=== PATIENT | female | born 1990 | race Caucasian/White ===

== ENCOUNTER 2017-11-19 17:33 | Emergency (ER) | payer MEDICAID, OTHER ==
[~2017-11-19] VITALS: Ht 160 cm; Wt 102.1 kg
--- OUTSIDE RECORDS SUMMARY | 2017-11-19 17:42 | XMS REPORT ---
Author Author Renee Markham [facility] Address [address] [place], [place] [id number] Care Team Providers Care Media Assistant Name Role Phone Renee Markham PCP Unavailable Allergies and Adverse Reactions Name Reaction Notes NO KNOWN DRUG ALLERGIES Plan of Treatment Planned Activity Comments Planned Date Planned Time Plan/Goal CULTURE OTHR SPECIMN AEROBIC 02/17/2015 12:00 AM Medications Active Name Start Date Estimated Completion Date SIG Comments Vinate Ultra 90-1-50 mg oral tablet 09/19/2014 take 1 tablet by oral route once daily Claritin 10 mg oral tablet 09/24/2014 take 1 tablet (10 mg) by oral route once daily Diclegis 10-10 mg oral tablet,delayed release (DR/EC) take 1 tablet by oral route once daily in the morning, 1 tablet in the mid-afternoon, and 2 tablets at bedtime Name Start Date Expiration Date SIG Comments Tylenol-Codeine #3 300-30 mg oral tablet 10/10/2012 take 1 tablet by oral route every 8 hours as needed Percocet 5-325 mg oral tablet 10/12/2012 take 1 tablet by oral route every 6 hours as needed Imodium A-D 2 mg oral tablet 04/29/2013 05/02/2013 take 2 tablets (4 mg) by oral route after 1st loose stool and 1 tablet (2 mg) after each next bowel movement; do not exceed 16 mg in 24hrs f ranitidine HCl 150 mg oral capsule 04/29/2013 09/26/2013 take 1 capsule (150 mg ) by oral route 2 times per day for 30 days Discontinued Name Start Date Discontinued Date SIG Comments TriAdvance 90-1-50 mg oral tablet 12/30/2011 09/28/2012 take 1 tablet by oral route once daily for 30 days ibuprofen 800 mg oral tablet 01/11/2012 01/19/2012 take 1 tablet (800 mg) by oral route 3 times per day with food prn pain Percocet 5-325 mg oral tablet 01/11/2012 01/19/2012 take 1 tablet by oral route every 6 hours as needed Sprintec (28) 0.25-35 mg-mcg oral tablet 01/19/2012 09/28/2012 take 1 tablet by oral route once daily for 28 days loratadine 10 mg oral tablet 03/18/2014 take 1 tablet (10 mg) by oral route once daily PreQue 10 15 mg iron -0.5 mg-25 mg oral tablet 03/14/2013 11/12/2013 1 PO qdaily Zofran ODT 4 mg oral tablet,disintegrating 04/29/2013 11/12/2013 1 PO q 8 hrs prn nausea Percocet 5-325 mg oral tablet 11/12/2013 take 1 - 2 tablets by oral route every 4-6 hours as needed Prilosec oral 08/01/2014 paroxetine HCl 20 mg oral tablet 08/01/2014 PNV- OTC 08/01/2014 09/19/2014 1 PO qdaily Problem List Description Status Onset Rheumatoid arthritis Active , Threatened Active 10/12/2012 Vital Signs Date Time BP-Sys(mm[Hg] BP-Germaine(mm[Hg]) HR(bpm) RR(rpm) Temp WT HT HC BMI BSA BMI Percentile O2 Sat(%) 08/01/2014 3:22:00 PM 139 mmHg 71 mmHg 96 bpm 96.9 F 206 lbs 62 in 37.68 kg/m2 2.02 m2 03/18/2014 3:36:00 PM 119 mmHg 74 mmHg 88 bpm 97.8 F 205 lbs 62 in 37.4946 kg/m 2.0168 m 11/12/2013 8:36:00 AM 125 mmHg 77 mmHg 87 bpm 98.3 F 206 lbs 62 in 37.68 kg/m2 2.02 m2 07/03/2013 2:25:00 PM 102 mmHg 69 mmHg 67 bpm 16 rpm 97.9 F 198 lbs 62 in 36.2143 kg/m 1.9821 m 10/05/2012 10:31:00 AM 101 mmHg 63 mmHg 74 bpm 97.9 F 201 lbs 62 in 36.76 kg/m2 2.00 m2 09/28/2012 1:42:00 PM 133 mmHg 68 mmHg 94 bpm 97.7 F 204 lbs 62 in 37.3117 kg/m 2.0119 m 01/19/2012 9:26:00 AM 131 mmHg 72 mmHg 74 bpm 206 lbs 62 in 37.68 kg/m2 2.02 m2 12/16/2011 11:15:00 AM 124 mmHg 86 mmHg 60 bpm 206 lbs 62 in 37.6775 kg/m 2.0218 m Social History Name Description Comments Alcohol Never Health care Res care Single Tobacco Former smoker History of Procedures Date Ordered Description Order Status 12/16/2011 12:00 AM CYTOPATH C/V THIN LAYER Returned 12/16/2011 12:00 AM SPECIMEN HANDLING OFFICE-LAB Reviewed 12/16/2011 12:00 AM N.GONORRHOEAE DNA AMP PROB Returned 12/16/2011 12:00 AM CHLAMYDIA CULTURE Returned 12/16/2011 12:00 AM OBSTETRIC PANEL Returned 12/16/2011 12:00 AM HIV-1ANTIBODY Returned 12/16/2011 12:00 AM URINALYSIS AUTO W/SCOPE Returned 12/16/2011 12:00 AM OB US < 14 WKS SINGLE FETUS Reviewed 12/16/2011 12:00 AM GLYCOSYLATED HEMOGLOBIN TEST Returned 01/11/2012 12:00 AM COMPLETE CBC W/AUTO DIFF WBC Returned 01/11/2012 12:00 AM Type and screen Returned 09/28/2012 12:00 AM URINE TEST Reviewed 09/28/2012 12:00 AM CYTOPATH C/V THIN LAYER Returned 09/28/2012 12:00 AM SPECIMEN HANDLING OFFICE-LAB Reviewed 09/28/2012 12:00 AM N.GONORRHOEAE DNA AMP PROB Returned 09/28/2012 12:00 AM CHLAMYDIA CULTURE Returned 09/28/2012 12:00 AM OBSTETRIC PANEL Returned 09/28/2012 12:00 AM HIV-1ANTIBODY Returned 09/28/2012 12:00 AM URINALYSIS AUTO W/SCOPE Returned 09/28/2012 12:00 AM OB US < 14 WKS SINGLE FETUS Returned 09/28/2012 12:00 AM GLYCOSYLATED HEMOGLOBIN TEST Returned 09/28/2012 12:00 AM SMEAR WET MOUNT SALINE/INK Reviewed 10/12/2012 12:00 AM TRANSVAGINAL US OBSTETRIC Reviewed 10/23/2012 12:00 AM TRANSVAGINAL US OBSTETRIC Reviewed 12/06/2012 12:00 AM ALPHA-FETOPROTEIN SERUM Returned 01/03/2013 12:00 AM OB US >/=14 WKS SNGL FETUS Returned 02/28/2013 12:00 AM GLUCOSE TEST Returned 02/28/2013 12:00 AM COMPLETE CBC W/AUTO DIFF WBC Returned 02/28/2013 12:00 AM Type and screen Returned 02/28/2013 12:00 AM GLUCOSE TOLERANCE TEST (GTT) Returned 04/02/2013 12:00 AM OB US >/=14 WKS SNGL FETUS Reviewed 04/24/2013 12:00 AM OB US >/=14 WKS SNGL FETUS Returned 11/12/2013 12:00 AM CYTOPATH C/V MANUAL Reviewed 11/12/2013 12:00 AM SPECIMEN HANDLING OFFICE-LAB Reviewed 11/12/2013 12:00 AM CHLAMYDIA CULTURE Returned 11/12/2013 12:00 AM N.GONORRHOEAE DNA AMP PROB Returned 11/12/2013 12:00 AM ASSAY THYROID STIM HORMONE Returned 11/12/2013 12:00 AM URINALYSIS AUTO W/SCOPE Returned 11/12/2013 12:00 AM ASSAY OF GONADOTROPIN (FSH) Returned 11/12/2013 12:00 AM ASSAY OF PROLACTIN Returned 11/12/2013 12:00 AM ASSAY OF FREE TESTOSTERONE Returned 11/12/2013 12:00 AM ASSAY OF SEX HORMONE GLOBUL Returned 03/26/2014 12:00 AM Breast ultrasound Returned 03/18/2014 12:00 AM Breast ultrasound Reviewed 08/01/2014 3:31 PM URINE TEST Reviewed 08/01/2014 12:00 AM N.GONORRHOEAE DNA AMP PROB Returned 08/01/2014 12:00 AM CHLAMYDIA CULTURE Returned 08/01/2014 12:00 AM HIV-1ANTIBODY Returned 08/01/2014 12:00 AM CYTOPATH C/V THIN LAYER Returned 08/01/2014 12:00 AM URINALYSIS AUTO W/SCOPE Returned 08/01/2014 12:00 AM OBSTETRIC PANEL Returned 08/01/2014 12:00 AM US PREG UTERUS REAL TIME W/IMAGE DCMTN TRANSVAG Returned 08/01/2014 12:00 AM SPECIMEN HANDLING OFFICE-LAB Reviewed 10/03/2014 12:00 AM ALPHA-FETOPROTEIN SERUM Returned 10/31/2014 12:00 AM OB US >/=14 WKS SNGL FETUS Returned 12/25/2014 12:00 AM GLUCOSE TEST Returned 12/25/2014 12:00 AM COMPLETE CBC W/AUTO DIFF WBC Returned 12/25/2014 12:00 AM Type and screen Returned 02/07/2015 12:00 AM OB US FOLLOW-UP PER FETUS Returned Results Summary Data and Description Results 12/16/2011 12:50 PM WBC 9.2 RBC 4.78 HGB 14.80 g/dLHCT 42.30 %MCV 89.0 fLMCH 31.0 pgMCHC 35.0 g/dLRDW CV 12.90 %MPV 10.70 fLPLT 257 %NEUT 68.70 %%LYMP 24.70 %%MONO 5.10 %%EOS 1.30 %%BASO 0.20 %#NEUT 6.28 #LYMP 2.26 #MONO 0.47 #EOS 0.12 # BASO 0.02 COLOR YELLOW APPEARANCE CLEAR SPEC GRAV 1.020 pH 7.0 PROTEIN NEGATIVE GLUCOSE NEGATIVE KETONE NEGATIVE BILIRUBIN NEGATIVE BLOOD NEGATIVE NITRITE NEGATIVE LEUK SCREEN NEGATIVE CASTS/LPF NEGATIVE CRYSTALS TRACE CA OX MUCOUS THRDS FEW BACTERIA FEW EPITH CELLS FEW SQUAMOUS TRICHOMONAS NEGATIVE YEAST NEGATIVE HIV AG/AB COMBO 0.09 GLYCOHEMOGLOBIN A1C 5.0 %ABO/Rh Type A Positive RUBELLA 15.0 IU/mL 01/11/2012 10:40 AM WBC 9.0 RBC 4.82 HGB 14.80 g/dLHCT 42.60 %MCV 88.0 fLMCH 30.70 pgMCHC 34.70 g/dLRDW CV 12.70 %MPV 10.60 fLPLT 287 ABO/Rh Type A Positive 10/02/2012 5:20 PM COLOR YELLOW APPEARANCE CLEAR SPEC GRAV 1.025 pH 6.0 PROTEIN NEGATIVE GLUCOSE NEGATIVE KETONE NEGATIVE BILIRUBIN NEGATIVE BLOOD NEGATIVE NITRITE NEGATIVE LEUK SCREEN NEGATIVE CASTS/LPF NEGATIVE CRYSTALS NEGATIVE MUCOUS THRDS NEGATIVE BACTERIA NEGATIVE EPITH CELLS NEGATIVE TRICHOMONAS NEGATIVE YEAST NEGATIVE WBC 11.9 RBC 4.60 HGB 13.70 g/dLHCT 40.0 % MCV 87.0 fLMCH 29.80 pgMCHC 34.30 g/dLRDW CV 12.80 %MPV 10.50 fLPLT 250 %NEUT 73.80 %%LYMP 20.20 %%MONO 4.50 %%EOS 1.30 %%BASO 0.20 %#NEUT 8.79 #LYMP 2.40 # MONO 0.53 #EOS 0.15 #BASO 0.02 ABO/Rh Type A Positive GLYCOHEMOGLOBIN A1C 5.60 % HIV AG/AB COMBO 0.25 02/28/2013 9:55 AM WBC 8.1 RBC 4.02 HGB 11.70 g/dLHCT 34.30 %MCV 85.0 fLMCH 29.10 pgMCHC 34.10 g/dLRDW CV 13.50 %MPV 9.70 fLPLT 284 %NEUT 73.80 %%LYMP 20.30 %%MONO 4.0 %%EOS 1.70 %%BASO 0.20 %#NEUT 5.96 #LYMP 1.64 #MONO 0.32 #EOS 0.14 #BASO 0.02 ABO/Rh Type A Positive 04/29/2013 8:50 AM WBC 12.5 PLT 271 %NEUT 89.80 %%LYMP 6.10 %%MONO 3.70 %%EOS 0.30 %%BASO 0.10 %#NEUT 11.24 #LYMP 0.76 #MONO 0.46 #EOS 0.04 #BASO 0.01 EOS 1.0 %RBC 4.19 HGB 11.20 g/dLHCT 34.20 %MCV 82.0 fLMCH 26.70 pgMCHC 32.70 g/ dLRDW CV 13.90 %MPV 10.0 fLCOLOR YELLOW APPEARANCE CLEAR SPEC GRAV 1.025 pH 5.5 PROTEIN TRACE GLUCOSE NEGATIVE KETONE NEGATIVE BILIRUBIN NEGATIVE BLOOD NEGATIVE NITRITE NEGATIVE LEUK SCREEN NEGATIVE CASTS/LPF NEGATIVE CRYSTALS TRACE AMORPH MUCOUS THRDS FEW BACTERIA FEW EPITH CELLS 1+ SQUAMOUS TRICHOMONAS NEGATIVE YEAST NEGATIVE GLUCOSE 92.0 mg/dLSODIUM 138.0 mmol/LPOTASSIUM 3.80 mmol /LCHLORIDE 107.0 mmol/LCO2 20.0 mmol/LBUN 9.0 mg/dLCREATININE 0.60 mg/dLSGOT/ AST 13.0 IU/LSGPT/ALT 13.0 IU/LALK PHOS 122.0 IU/LTOTAL PROTEIN 6.60 g/ dLALBUMIN 3.0 g/dLTOTAL BILI 0.40 mg/dLCALCIUM 9.20 mg/dLeGFR >60 mL/min/1.73 m2 05/02/2013 10:15 PM WBC 7.3 RBC 4.08 HGB 10.80 g/dLHCT 33.20 %MCV 81.0 fLMCH 26.50 pgMCHC 32.50 g/dLRDW CV 13.90 %MPV 10.30 fLPLT 249 %NEUT 75.50 %%LYMP 18.70 %%MONO 5.0 %%EOS 0.70 %%BASO 0.10 %#NEUT 5.54 #LYMP 1.37 #MONO 0.37 #EOS 0.05 #BASO 0.01 ABO/Rh Type A Positive 05/04/2013 7:20 AM WBC 12.2 RBC 3.89 HGB 10.30 g/dLHCT 31.80 %MCV 82.0 fLMCH 26.50 pgMCHC 32.40 g/dLRDW CV 14.0 %MPV 9.80 fLPLT 220 07/13/2013 8:40 AM TEST UR NEGATIVE 11/12/2013 1:19 PM COLOR YELLOW APPEARANCE CLEAR SPEC GRAV >=1.030 pH 5.5 PROTEIN NEGATIVE GLUCOSE NEGATIVE KETONE NEGATIVE BILIRUBIN NEGATIVE BLOOD NEGATIVE NITRITE NEGATIVE LEUK SCREEN NEGATIVE CASTS/LPF NEGATIVE CRYSTALS TRACE AMORPH MUCOUS THRDS NEGATIVE BACTERIA FEW EPITH CELLS FEW SQUAMOUS TRICHOMONAS NEGATIVE YEAST NEGATIVE 11/16/2013 8:45 AM FSH 0.90 mIU/mLFree Testosterone(Direct) 0.60 pg/mLTSH 0.40 uIU/mLProlactin 17.90 ng/mLChlamydia trachomatis,LUPIS Negative Neisseria gonorrhoeae,LUPIS Negative COLOR YELLOW APPEARANCE CLEAR SPEC GRAV >=1.030 pH 5.5 PROTEIN NEGATIVE GLUCOSE NEGATIVE KETONE NEGATIVE BILIRUBIN NEGATIVE BLOOD NEGATIVE NITRITE NEGATIVE LEUK SCREEN NEGATIVE CASTS/LPF NEGATIVE CRYSTALS NEGATIVE MUCOUS THRDS FEW BACTERIA NEGATIVE EPITH CELLS FEW SQUAMOUS TRICHOMONAS NEGATIVE YEAST NEGATIVE 08/01/2014 3:31 PM HCG Ur Ql positive 08/01/2014 4:30 PM WBC 11.1 RBC 4.73 HGB 13.90 g/dLHCT 41.60 %MCV 88.0 fLMCH 29.40 pgMCHC 33.40 g/dLRDW CV 12.90 %MPV 10.30 fLPLT 268 %NEUT 76.30 %%LYMP 18.80 %%MONO 3.70 %%EOS 1.10 %%BASO 0.10 %#NEUT 8.46 #LYMP 2.09 #MONO 0.41 #EOS 0.12 #BASO 0.01 COLOR YELLOW APPEARANCE CLOUDY SPEC GRAV 1.020 pH 7.5 PROTEIN NEGATIVE GLUCOSE NEGATIVE KETONE NEGATIVE BILIRUBIN NEGATIVE BLOOD NEGATIVE NITRITE NEGATIVE LEUK SCREEN NEGATIVE CASTS/LPF NEGATIVE CRYSTALS 3+++AMORPHOUS MUCOUS THRDS NEGATIVE BACTERIA NEGATIVE EPITH CELLS FEW SQUAMOUS TRICHOMONAS NEGATIVE YEAST NEGATIVE RPR Non Reactive HIV AG/AB COMBO 0.08 HBsAg Screen Negative Rubella Antibodies, IgG 1.08 Index 10/03/2014 3:45 PM AFP Value 0.0352 ug/mLAFP MoM 1.20 hCG Value 18888.0 mIU/ mLhCG MoM 0.96 uE3 Value 1.150 ng/mLuE3 MoM 1.44 GERMAINE Value 209.620 pg/mLDIA MoM 1.30 OSBR Risk 1 IN 6499 DSR (Second Trimester) 1IN 6292 DSR (By Age) 1 IN 924 T18 Risk Not increased T18 (By Age) 1:3600 12/25/2014 2:50 PM WBC 8.9 RBC 4.11 HGB 12.10 g/dLHCT 36.60 %MCV 89.0 fLMCH 29.40 pgMCHC 33.10 g/dLRDW CV 13.30 %MPV 9.90 fLPLT 274 %NEUT 78.50 %%LYMP 16.90 %%MONO 3.60 %%EOS 0.90 %%BASO 0.10 %#NEUT 7.00 #LYMP 1.51 #MONO 0.32 #EOS 0.08 #BASO 0.01 History Of Immunizations Not available. History of Past Illness Name Date of Onset Comments Rheumatoid arthritis Diagnosed age 19 , Threatened 10/12/2012 test confirmed positive Dec 16 2011 11:25AM Obesity complicating Dec 16 2011 11:25AM , Spontaneous Jan 11 2012 10:26AM , Spontaneous Jan 19 2012 9:30AM Postoperative Visit Jan 19 2012 9:30AM test confirmed positive Sep 28 2012 1:51PM Vaginal Discharge Sep 28 2012 1:51PM , High Risk Oct 12 2012 3:01PM , Threatened Oct 12 2012 3:01PM , High Risk Oct 23 2012 10:39AM , Threatened Oct 23 2012 10:39AM , High Risk Dec 06 2012 1:42PM , Other Normal Feb 28 2013 9:03AM Impaired glucose tolerance test (oral) Feb 28 2013 2:04PM Uterine size date discrepancy; antepartum condition or complication Apr 02 2013 9:09AM Uterine size date discrepancy; antepartum condition or complication Apr 12 2013 3:54PM Cholelithiasis Jul 03 2013 2:29PM Chronic Cholecystitis Jul 03 2013 2:29PM Pancreatitis Jul 03 2013 2:29PM Routine gynecological examination Nov 12 2013 8:42AM Contraceptive Counseling Nov 12 2013 8:42AM Tobacco Abuse Nov 12 2013 8:42AM Decreased libido Nov 12 2013 8:42AM Vaginal Discharge Nov 12 2013 8:42AM Breast Lump, left Mar 18 2014 3:54PM Breast Lump, right Mar 18 2014 3:54PM Breast Mass Mar 18 2014 3:40PM test confirmed positive Aug 01 2014 3:31PM , Other Normal Oct 03 2014 3:33PM , Other Normal Dec 25 2014 2:08PM Uterine size date discrepancy; antepartum condition or complication Feb 03 2015 2:08PM Group B Strep Screening, Feb 17 2015 1:36PM Payers Insurance Name Company Name Plan Name Plan Number Policy Number Policy Group Number Start Date [employer] [place] [employer] [place] [id number] N/A [employer] [place] [employer] [place] [id number] N/A [place] Medical Assistance [facility] Medical Assistance Pro [id number] November History of Encounters Visit Date Visit Type Provider 02/17/2015 Office visit Renee Markham MD 02/03/2015 Office visit RENEE MARKHAM MD 01/20/2015 Office visit RENEE MARKHAM MD 01/08/2015 Office visit Frankie Dumont MD 12/25/2014 Office visit Frankie Dumont MD 12/04/2014 Office visit Frankie Dumont MD 11/06/2014 Office visit Frankie Dumont MD 10/03/2014 Office visit Frankie Dumont MD 09/05/2014 Office visit Frankie Dumont MD 08/01/2014 Office visit Frankie Dumont MD 05/03/2014 [facility] Frankie Dumont MD 03/18/2014 Office visit Andie Tuttle CARE CENTER MANAGER 11/12/2013 Office visit Andie Tuttle CARE CENTER MANAGER 07/13/2013 [facility] Sukhi Polanco MD 07/03/2013 Office visit Sukhi Polacno MD 05/02/2013 [facility] Frankie Dumont MD 04/30/2013 Office visit Frankie Dumont MD 04/29/2013 [facility] Frankie Dumont MD 04/12/2013 Office visit Frankie Dumont MD 04/04/2013 Office visit Frankie Dumont MD 03/28/2013 Office visit Frankie Dumont MD 03/14/2013 Office visit Frankie Dumont MD 02/28/2013 Office visit Andie Tuttle CARE CENTER MANAGER 02/14/2013 Office visit Frankie Dumont MD 01/29/2013 Office visit Frankie Dumont MD 01/04/2013 Office visit Frankie Dumont MD 12/06/2012 Office visit Frankie Dumont MD 11/22/2012 Office visit Frankie Dumont MD 11/09/2012 Office visit Frankie Dumont MD 11/01/2012 Office visit Frankie Dumont MD 10/25/2012 Office visit Frankie Dumont MD 10/20/2012 Office visit Frankie Dumont MD 10/12/2012 Office visit Frankie Dumont MD 10/05/2012 Office visit Prachi Canada MD 09/28/2012 Office visit Frankie Dumont MD 01/19/2012 Office visit Frankie Dumont MD 01/12/2012 [facility] Frankie Dumont MD 01/11/2012 Office visit Frankie Dumont MD 12/30/2011 Office visit Frankie Dumont MD 12/16/2011 Office visit Frankie Dumont MD
--- OUTSIDE RECORDS SUMMARY | 2017-11-19 17:42 | XMS REPORT ---
Author Author Andie Tuttle [facility] Address [address] [place], [place] [id number] Care Team Providers Care Customs Manager Name Role Phone Andie Tuttle PCP Unavailable Allergies and Adverse Reactions Name Reaction Notes NO KNOWN DRUG ALLERGIES Plan of Treatment Not available. Medications Active Name Start Date Estimated Completion Date SIG Comments ParaGard T 380A 380 square mm intrauterine intrauterine device 04/14/2015 place 1 device by intrauterine route daily for 1 day Name Start Date Expiration Date SIG Comments [...] PNV- OTC 08/01/2014 09/19/2014 1 PO qdaily Vinate Ultra 90-1-50 mg oral tablet 09/19/2014 04/08/2015 take 1 tablet by oral route once daily Claritin 10 mg oral tablet 09/24/2014 04/08/2015 take 1 tablet (10 mg) by oral route once daily Diclegis 10-10 mg oral tablet,delayed release (DR/EC) 04/08/2015 take 1 tablet by oral route once daily in the morning, 1 tablet in the mid-afternoon, and 2 tablets at bedtime Problem List Description Status Onset Rheumatoid arthritis Active , Threatened Active 10/12/2012 Vital Signs Date Time BP-Sys(mm[Hg] BP-Germaine(mm[Hg]) HR(bpm) RR(rpm) Temp WT HT HC BMI BSA BMI Percentile O2 Sat(%) 04/14/2015 4:50:00 PM 123 mmHg 70 mmHg 59 bpm 97.3 F 190 lbs 62 in 34.75 kg/m2 1.94 m2 04/08/2015 3:39:00 PM 103 mmHg 68 mmHg 62 bpm 97.2 F 191.375 lbs 62 in 35.0026 kg/m 1.9487 m 08/01/2014 3:22:00 PM 139 mmHg 71 mmHg [...] Never Health care Res care Single Tobacco Current every day smoker History of Procedures Date Ordered Description Order Status 02/17/2015 12:00 AM CULTURE OTHR SPECIMN AEROBIC Returned 04/14/2015 5:04 PM URINE TEST Reviewed 12/16/2011 12:00 AM CYTOPATH C/V THIN LAYER [...] NEGATIVE YEAST NEGATIVE HIV AG/AB COMBO 0.09 ABO/Rh Type A Positive RUBELLA 15.0 IU/mL 01/11/2012 [...] 0.15 #BASO 0.02 ABO/Rh Type A Positive HIV AG/AB COMBO 0.25 02/28/2013 9:55 AM [...] Value 0.0352 ug/mLAFP MoM 1.20 hCG Value 81772.0 mIU/ mLhCG MoM 0.96 uE3 Value 1.150 [...] 1.51 #MONO 0.32 #EOS 0.08 #BASO 0.01 04/14/2015 5:04 PM Test, Urine Negative History Of Immunizations Not available. History of [...] B Strep Screening, Feb 17 2015 1:36PM Contraceptive education Apr 14 2015 9:00AM Special investigations and examinations; examination or test; examination or test, negative result Apr 14 2015 5:04PM IUD insertion Apr 14 2015 4:55PM Payers Insurance Name Company Name Plan Name Plan Number Policy Number Policy Group Number Start Date [employer] [place] [employer] [place] [id number] N/A [employer] [place] [employer] [place] [id number] N/A [place] [facility] [place] [facility] [place] [id number] November History of Encounters Visit Date Visit Type Provider 04/14/2015 Office visit Andie Tuttle CORRECTIONAL CASE RECORDS SUPERVISOR 04/08/[address] Ruby Shepherd MD 02/25/[address] [facility] [address] Ruby Shepherd MD 02/17/2015 Office visit VARGAS NGO MD 02/03/2015 Office visit VARGAS NGO MD 01/20/2015 Office visit VARGAS NGO MD 01/08/2015 Office visit Frankie Dumont MD 12/25/2014 Office visit Frankie Dumont MD 12/04/2014 Office visit Frankie Dumont MD 11/06/2014 Office visit Frankie Dumont MD 10/03/2014 Office visit Frankie Dumont MD 09/05/2014 Office visit Frankie Dumont MD 08/01/2014 Office visit Frankie Dumont MD 05/03/2014 Hospital Frankie Dumont MD 03/18/2014 Office visit Andie Tuttle CORRECTIONAL CASE RECORDS SUPERVISOR 11/12/2013 Office visit Andie Tuttle CORRECTIONAL CASE RECORDS SUPERVISOR 07/13/2013 Hospital Sukhi Polanco MD 07/03/2013 Office visit Sukhi Polanco MD 05/02/2013 Hospital Frankie Dumont MD 04/30/2013 Office visit Frankie Dumont MD 04/29/2013 [facility] Frankie Dumont MD 04/12/2013 Office visit Frankie Dumont MD 04/04/2013 Office visit Frankie Dumont MD 03/28/2013 Office visit Frankie Dumont MD 03/14/2013 Office visit Frankie Dumont MD 02/28/2013 Office visit Andie Tuttle CORRECTIONAL CASE RECORDS SUPERVISOR 02/14/2013 Office visit Frankie Dumont MD 01/29/2013 [...] 01/19/2012 Office visit Frankie Dumont MD 01/12/2012 [facility] Frankie Dumont MD 01/11/2012 Office visit Frankie Dumont MD 12/30/2011 Office visit Frankie Dumont MD 12/16/2011 Office visit Frankie Dumont MD
--- OUTSIDE RECORDS SUMMARY | 2017-11-19 17:43 | XMS REPORT ---
Author Author [facility] Organization [facility] Address [address] [place], [place] [id number] Care Team Providers Care Nurse Tech Name Role Phone PCP Unavailable Allergies and Adverse Reactions Name Reaction Notes NO KNOWN DRUG ALLERGIES Plan of Treatment Not available. Medications Active Name Start Date Estimated Completion Date SIG Comments Vinate Ultra oral tablet 90-1-50 mg 09/19/2014 take 1 tablet by oral route once daily Claritin oral tablet 10 mg 09/24/2014 take 1 tablet (10 mg) by oral route once daily Diclegis oral tablet,delayed release (DR/EC) 10-10 mg take 1 tablet by oral route once daily in the morning, 1 tablet in the mid-afternoon, and 2 tablets at bedtime Name Start Date Expiration Date SIG Comments Tylenol-Codeine #3 Oral tablet 300-30 mg 10/10/2012 take 1 tablet by oral route every 8 hours as needed Percocet Oral tablet 5-325 mg 10/12/2012 take 1 tablet by oral route every 6 hours as needed Imodium A-D oral tablet 2 mg 04/29/2013 05/02/2013 take 2 tablets (4 mg) by oral route after 1st loose stool and 1 tablet (2 mg) after each next bowel movement; do not exceed 16 mg in 24hrs f ranitidine HCl oral capsule 150 mg 04/29/2013 09/26/2013 take 1 capsule (150 mg ) by oral route 2 times per day for 30 days Discontinued Name Start Date Discontinued Date SIG Comments TriAdvance Oral tablet 90-1-50 mg 12/30/2011 09/28/2012 take 1 tablet by oral route once daily for 30 days ibuprofen Oral tablet 800 mg 01/11/2012 01/19/2012 take 1 tablet (800 mg) by oral route 3 times per day with food prn pain Percocet Oral tablet 5-325 mg 01/11/2012 01/19/2012 take 1 tablet by oral route every 6 hours as needed Sprintec (28) Oral tablet 0.25-35 mg-mcg 01/19/2012 09/28/2012 take 1 tablet by oral route once daily for 28 days loratadine Oral tablet 10 mg 03/18/2014 take 1 tablet (10 mg) by oral route once daily PreQue 10 Oral tablet 15 mg iron -0.5 mg-25 mg 03/14/2013 11/12/2013 1 PO qdaily ZOFRAN ODT oral tablet,disintegrating 4 mg 04/29/2013 11/12/2013 1 PO q 8 hrs prn nausea Percocet oral tablet 5-325 mg 11/12/2013 take 1 - 2 tablets by oral route every 4-6 hours as needed Prilosec oral 08/01/2014 paroxetine HCl oral tablet 20 mg 08/01/2014 PNV- OTC 08/01/2014 09/19/2014 1 PO [...] 12/25/2014 12:00 AM Type and screen Returned Results Summary Data and Description Results [...] Value 0.0352 ug/mLAFP MoM 1.20 hCG Value 77576.0 mIU/ mLhCG MoM 0.96 uE3 Value 1.150 [...] , Other Normal Dec 25 2014 2:08PM Payers Insurance Name Company Name Plan Name Plan Number Policy Number Policy Group Number Start Date [employer] [place] [employer] [place] [id number] [place] [employer] [place] [employer] [place] [id number] N/A [place] Medical [facility] Medical Assistance Pro [id number] November History of Encounters Visit Date Visit Type Provider 01/08/2015 Office visit Frankie Dumont MD 12/25/2014 Office visit Frankie Dumont MD 12/04/2014 Office visit Frankie Dumont MD 11/06/2014 Office visit Frankie Dumont MD 10/03/2014 Office visit Frankie Dumont MD 09/05/2014 Office visit Frankie Dumont MD 08/01/2014 Office visit Frankie Dumont MD 05/03/2014 [facility] Franike Dumont MD 03/18/2014 Office visit Anide Tuttle TEST EQUIPMENT MECHANIC 11/12/2013 Office visit Andie Tuttle TEST EQUIPMENT MECHANIC 07/13/2013 [facility] Sukhi Polanco MD 07/03/2013 Office visit Sukhi Polanco MD 05/02/2013 [facility] Frankie Dumont MD 04/30/2013 Office visit Frankie Dumont MD 04/29/2013 [facility] Frankie Dumont MD 04/12/2013 Office visit Frankie Dumont MD 04/04/2013 Office visit Frankie Dumont MD 03/28/2013 Office visit Frankie Dumont MD 03/14/2013 Office visit Frankie Dumont MD 02/28/2013 Office visit Andie Tuttle TEST EQUIPMENT MECHANIC 02/14/2013 Office visit Frankie Dumont MD 01/29/2013 [...] 01/19/2012 Office visit Frankie Dumont MD 01/12/2012 [facility] Frankie Dumont MD 01/11/2012 Office visit Frankie Dumont MD 12/30/2011 Office visit Frankie Dumont MD 12/16/2011 Office visit Frankie Dumont MD
--- OUTSIDE RECORDS SUMMARY | 2017-11-19 17:44 | XMS REPORT ---
Author Author [facility] Organization [facility] Address [address] [place], [place] [id number] Care Team Providers Care Historian Research Assistant Name Role Phone PCP Unavailable Allergies and Adverse Reactions Name Reaction Notes NO KNOWN DRUG ALLERGIES Plan of Treatment Planned Activity Comments Planned Date Planned Time Plan/Goal ALPHA-FETOPROTEIN SERUM 10/03/2014 12:00 AM OB US >/=14 WKS SNGL FETUS 10/31/2014 12:00 AM Medications Active Name Start Date Estimated Completion Date SIG Comments Vinate Ultra oral tablet 90-1-50 mg 09/19/2014 take 1 tablet by oral route once daily Claritin oral tablet 10 mg 09/24/2014 take 1 tablet (10 mg) by oral route once daily Name Start Date Expiration Date SIG Comments [...] m Social History Name Description Comments Alcohol Health care Res care Single Tobacco Former [...] AM OBSTETRIC PANEL Returned 08/01/2014 12:00 AM SPECIMEN HANDLING OFFICE-LAB Reviewed Results Summary Data and Description Results 12/16/2011 [...] FSH 0.90 mIU/mLFree Testosterone(Direct) 0.60 pg/mLTSH 0.40 uIU/mLChlamydia trachomatis,LUPIS Negative COLOR YELLOW APPEARANCE CLEAR SPEC GRAV [...] TRICHOMONAS NEGATIVE YEAST NEGATIVE HIV AG/AB COMBO 0.08 HBsAg Screen Negative History Of Immunizations Not available. History [...] , Other Normal Oct 03 2014 3:33PM Payers Insurance Name Company Name Plan Name Plan Number Policy Number Policy Group Number Start Date [employer] [place] [employer] [place] [id number] N/A [employer] [place] [employer] [place] [id number] N/A [place] [id number] November History of Encounters Visit Date Visit Type Provider 10/03/2014 Office visit Frankie Dumont MD 09/05/2014 Office visit Frankie Dumont MD 08/01/2014 Office visit Frankie Dumont MD 05/03/2014 [facility] Frankie Dumont MD 03/18/2014 Office visit Andie Tuttle SECOND STEWARD 11/12/2013 Office visit Andie Tuttle SECOND STEWARD 07/13/2013 [facility] Sukhi Polanco MD 07/03/2013 Office visit Sukhi Polanco MD 05/02/2013 [facility] Frankie Dumont MD 04/30/2013 Office visit Frankie Dumont MD 04/29/2013 [facility] Frankie Dumont MD 04/12/2013 Office visit Frankie Dumont MD 04/04/2013 Office visit Frankie Dumont MD 03/28/2013 Office visit Frankie Dumont MD 03/14/2013 Office visit Frankie Dumont MD 02/28/2013 Office visit Andie Tuttle SECOND STEWARD 02/14/2013 Office visit Frankie Dumont MD 01/29/2013 [...] 01/19/2012 Office visit Frankie Dumont MD 01/12/2012 [facility] Frankie Dumont MD 01/11/2012 Office visit Frankie Dumont MD 12/30/2011 Office visit Frankie Dumont MD 12/16/2011 Office visit Frankie Dumont MD
--- OUTSIDE RECORDS SUMMARY | 2017-11-19 17:44 | XMS REPORT ---
Author Author Renee Markham [facility] Address [address] [place], [place] [id number] Care Team Providers Care Mirror Finishing Machine Operator Name Role Phone Renee Markham PCP Unavailable Allergies and Adverse Reactions Name Reaction Notes NO KNOWN DRUG ALLERGIES Plan of Treatment Planned Activity Comments Planned Date Planned Time Plan/Goal OB US FOLLOW-UP PER FETUS 02/07/2015 12:00 AM Medications Active Name Start Date [...] Value 0.0352 ug/mLAFP MoM 1.20 hCG Value 27000.0 mIU/ mLhCG MoM 0.96 uE3 Value 1.150 [...] condition or complication Feb 03 2015 2:08PM Payers Insurance Name Company Name Plan Name Plan Number Policy Number Policy Group Number Start Date [employer] [place] [employer] [place] [id number] N/A [employer] [place] [employer] [place] [id number] N/A [place] Program [place] Pro [id number] November History of Encounters Visit Date Visit Type Provider 02/03/2015 Office visit Renee Markham MD 01/20/2015 Office visit RENEE MARKHAM MD 01/08/2015 Office visit Frankie Dumont MD 12/25/2014 Office visit Frankie Dumont MD 12/04/2014 Office visit Frankie Dumont MD 11/06/2014 Office visit Frankie Dumont MD 10/03/2014 Office visit Frankie Dumont MD 09/05/2014 Office visit Frankie Dumont MD 08/01/2014 Office visit Frankie Dumont MD 05/03/2014 [facility] Frankie Dumont MD 03/18/2014 Office visit Andie Tuttle SADDLE TREE STITCHER 11/12/2013 Office visit Andie Tuttle SADDLE TREE STITCHER 07/13/2013 [facility] Sukhi Polanco MD 07/03/2013 Office visit Sukhi Polanco MD 05/02/2013 [facility] Frankie Dumont MD 04/30/2013 Office visit Frankie Dumont MD 04/29/2013 [facility] Frankie Dumont MD 04/12/2013 Office visit Frankie Dumont MD 04/04/2013 Office visit Frankie Dumont MD 03/28/2013 Office visit Frankie Dumont MD 03/14/2013 Office visit Frankie Dumont MD 02/28/2013 Office visit Andie Tuttle SADDLE TREE STITCHER 02/14/2013 Office visit Frankie Dumont MD 01/29/2013 [...] 01/19/2012 Office visit Frankie Dumont MD 01/12/2012 [facility] Frankie Dumont MD 01/11/2012 Office visit Frankie Dumont MD 12/30/2011 Office visit Frankie Dumont MD 12/16/2011 Office visit Frankie Dumont MD
--- OUTSIDE RECORDS SUMMARY | 2017-11-19 17:45 | XMS REPORT ---
Author Author Gely Webb [facility] Address [address] [place], [place] [id number] Care Team Providers Care Contract Consultant Name Role Phone Gely Webb PCP Unavailable Allergies and Adverse Reactions Name Reaction Notes NO KNOWN DRUG ALLERGIES Plan of Treatment Not available. Medications Active Name Start Date Estimated Completion Date SIG Comments hydrocodone-acetaminophen 5-325 mg oral tablet 08/08/2015 08/15/2015 take 1 tablet by oral route every 6 hours as needed for pain for 7 days Name Start Date Expiration Date SIG Comments [...] 2 times per day for 30 days ParaGard T 380A 380 square mm intrauterine intrauterine device 04/14/2015 place 1 device by intrauterine route daily for 1 day Discontinued Name Start Date Discontinued Date SIG [...] HC BMI BSA BMI Percentile O2 Sat(%) 08/08/2015 6:26:00 PM 124 mmHg 80 mmHg 76 bpm 18 rpm 97.3 F 213.25 lbs 62 in 39.00 kg/m2 2.06 m2 99 % 04/14/2015 4:50:00 PM 123 mmHg 70 mmHg 59 bpm 97.3 F 190 lbs 62 in 34.7511 kg/m 1.9417 m 04/08/2015 3:39:00 PM 103 mmHg 68 mmHg 62 bpm 97.2 F 191.375 lbs 62 in 35.00 kg/m2 1.95 m2 08/01/2014 3:22:00 PM 139 mmHg 71 mmHg 96 bpm 96.9 F 206 lbs 62 in 37.6775 kg/m 2.0218 m 03/18/2014 3:36:00 PM 119 mmHg 74 mmHg 88 bpm 97.8 F 205 lbs 62 in 37.49 kg/m2 2.02 m2 11/12/2013 8:36:00 AM 125 mmHg 77 mmHg 87 bpm 98.3 F 206 lbs 62 in 37.6775 kg/m 2.0218 m 07/03/2013 2:25:00 PM 102 mmHg 69 mmHg 67 bpm 16 rpm 97.9 F 198 lbs 62 in 36.21 kg/m2 1.98 m2 10/05/2012 10:31:00 AM 101 mmHg 63 mmHg 74 bpm 97.9 F 201 lbs 62 in 36.763 kg/m 1.9971 m 09/28/2012 1:42:00 PM 133 mmHg 68 mmHg 94 bpm 97.7 F 204 lbs 62 in 37.31 kg/m2 2.01 m2 01/19/2012 9:26:00 AM 131 mmHg 72 mmHg 74 bpm 206 lbs 62 in 37.6775 kg/m 2.0218 m 12/16/2011 11:15:00 AM 124 mmHg 86 mmHg 60 bpm 206 lbs 62 in 37.68 kg/m2 2.02 m2 Social History Name Description Comments Alcohol Never Health care Res care Single Tobacco Current every day smoker History of Procedures Date Ordered Description Order Status 02/17/2015 12:00 AM CULTURE OTHR SPECIMN AEROBIC Returned 04/14/2015 5:04 PM URINE TEST Reviewed 04/14/2015 12:00 AM INSERT INTRAUTERINE DEVICE Reviewed 04/14/2015 12:00 AM Paraguard T380A -INTRAUTERINE COPPER CONTRACEPTIVE Reviewed 12/16/2011 12:00 AM CYTOPATH C/V THIN [...] Value 0.0352 ug/mLAFP MoM 1.20 hCG Value 28909.0 mIU/ mLhCG MoM 0.96 uE3 Value 1.150 [...] 5:04PM IUD insertion Apr 14 2015 4:55PM Tooth pain Aug 08 2015 6:31PM Payers Insurance Name Company Name Plan Name Plan Number Policy Number Policy Group Number Start Date [facility] [place] State Plan [employer] [facility] - [facility] State Plan [id number] N/A [employer] [place] [employer] [place] State Plan [id number] N/A [place] Medical [place] [facility] Medical Assistance Pro [id number] November History of Encounters Visit Date Visit Type Provider 08/08/2015 Office visit Gelyalba Webb COVER CUTTER 04/14/2015 Office visit Andie Tuttle COVER CUTTER 04/08/[address] Ruby Shepherd MD 02/25/[address] Ruby Shepherd MD 02/17/2015 Office visit VARGAS NGO MD 02/03/2015 Office visit VARGAS NGO MD 01/20/2015 Office visit VARGAS NGO MD 01/08/2015 Office visit Frankie Dumont MD 12/25/2014 Office visit Frankie Dumont MD 12/04/2014 Office visit Frankie Dumont MD 11/06/2014 Office visit Frankie Dumont MD 10/03/2014 Office visit 10/03/2014 Office visit Frankie Dumont MD 09/05/2014 Office visit Frankie Dumont MD 08/01/2014 Office visit Frankie Dumont MD 05/03/2014 [facility] Frankie Dumont MD 03/18/2014 Office visit Andie Tuttle COVER CUTTER 11/12/2013 Office visit Andie Tuttle COVER CUTTER 07/13/2013 Hospital Sukhi Polanco MD 07/03/2013 Office visit Sukhi Polanco MD 05/02/2013 [facility] Frankie Dumont MD 04/30/2013 Office visit Frankie Dumont MD 04/29/2013 [facility] Frankie Dumont MD 04/12/2013 Office visit Frankie Dumont MD 04/04/2013 Office visit Frankie Dumont MD 03/28/2013 Office visit Frankie Dumont MD 03/14/2013 Office visit Frankie Dumont MD 02/28/2013 Office visit Andie Tuttle COVER CUTTER 02/14/2013 Office visit Frankie Dumont MD 01/29/2013 [...] 01/19/2012 Office visit Frankie Dumont MD 01/12/2012 [facility] rFankie Dumont MD 01/11/2012 Office visit Frankie Dumont MD 12/30/2011 Office visit Frankie Dumont MD 12/16/2011 Office visit Frankie Dumont MD
--- OUTSIDE RECORDS SUMMARY | 2017-11-19 17:46 | XMS REPORT ---
Author Author Frankie Dumont [facility] Address [address] [place], [place] [phone] Care Team Providers Care Heel Sprayer First Name Role Phone Frankie Dumont PCP Allergies and Adverse Reactions Name Reaction Notes [...] 12:00 AM CULTURE OTHR SPECIMN AEROBIC Returned 12/16/2011 12:00 AM CYTOPATH C/V THIN LAYER [...] Value 0.0352 ug/mLAFP MoM 1.20 hCG Value 13492.0 mIU/ mLhCG MoM 0.96 uE3 Value 1.150 [...] Plan [employer] [place] [id number] [place] [employer] [place] [employer] [place] [id number] N/A [place] Medical Assistance [facility] Medical Assistance Pro [id number] November History of Encounters Visit Date Visit Type Provider 02/17/2015 Office visit VARGAS NGO MD 02/03/2015 Office visit VARGAS NGO MD 01/20/2015 Office visit VARGAS NGO MD 01/08/2015 Office visit Frankie Dumont MD 12/25/2014 Office visit Frankie Dumont MD 12/04/2014 Office visit Frankie Dumont MD 11/06/2014 Office visit Frankie Dumont MD 10/03/2014 Office visit Frankie Dumont MD 09/05/2014 Office visit Frankie Dumont MD 08/01/2014 Office visit Frankie Dumont MD 05/03/2014 [facility] Frankie Dumont MD 03/18/2014 Office visit Andie Tuttle PIANO PROFESSOR 11/12/2013 Office visit Andie Tuttle PIANO PROFESSOR 07/13/2013 [facility] Sukhi Polanco MD 07/03/2013 Office visit Sukhi Polanco MD 05/02/2013 [facility] Frankie Dumont MD 04/30/2013 Office visit rFankie Dumont MD 04/29/2013 [facility] Frankie Dumont MD 04/12/2013 Office visit Frankie Dumont MD 04/04/2013 Office visit Frankie Dumont MD 03/28/2013 Office visit Frankie Dumont MD 03/14/2013 Office visit Frankie Dumont MD 02/28/2013 Office visit Andie Tuttle APRN 02/14/2013 Office visit Frankie Dumont MD 01/29/2013 [...] 01/19/2012 Office visit Frankie Dumont MD 01/12/2012 [facility] Frankie Dumont MD 01/11/2012 Office visit Frankie Dumont MD 12/30/2011 Office visit Frankie Dumont MD 12/16/2011 Office visit Frankie Dumont MD
--- OUTSIDE RECORDS SUMMARY | 2017-11-19 17:47 | XMS REPORT ---
Author Author [facility] Organization [facility] Address [address] [place], [place] [id number] Care Team Providers Care Broomcorn Thresher Name Role Phone PCP Unavailable Allergies and [...] OB US >/=14 WKS SNGL FETUS Returned Results Summary Data and Description [...] HIV AG/AB COMBO 0.08 HBsAg Screen Negative 10/03/2014 3:45 PM AFP MoM 1.20 hCG Value 32319.0 mIU/mLuE3 Value 1.150 ng/ mLuE3 MoM 1.44 GERMAINE Value 209.620 pg/mLDIA MoM 1.30 DSR (Second Trimester) 1IN 6292 DSR (By Age) 1 IN 924 T18 Risk Not increased T18 (By Age) 1:3600 History Of Immunizations Not available. History of [...] Plan [employer] [place] [id number] N[place] [employer] [place] [employer] [place] [id number] N/A [place] [id number] November History of Encounters Visit Date Visit Type Provider 11/06/2014 Office visit Frankie Dumont MD 10/03/2014 Office visit Frankie Dumont MD 09/05/2014 Office visit Frankie Dumont MD 08/01/2014 Office visit Frankie Dumont MD 05/03/2014 [facility] Frankie Dumont MD 03/18/2014 Office visit Andie Tuttle RETAIL CUSTOMER SERVICE REPRESENTATIVE 11/12/2013 Office visit Andie Tuttle RETAIL CUSTOMER SERVICE REPRESENTATIVE 07/13/2013 [facility] Sukhi Polanco MD 07/03/2013 Office visit Sukhi Polanco MD 05/02/2013 [facility] Frankie Dumont MD 04/30/2013 Office visit Frankie Dumont MD 04/29/2013 Hospital Frankie Dumont MD 04/12/2013 Office visit [...] 01/19/2012 Office visit Frankie Dumont MD 01/12/2012 Hospital Frankie Dumont MD 01/11/2012 Office visit Frankie Dumont MD 12/30/2011 Office visit Frankie Dumont MD 12/16/2011 Office visit Frankie Dumont MD
--- OUTSIDE RECORDS SUMMARY | 2017-11-19 17:48 | XMS REPORT ---
Author Author Ruby Shepherd [facility] Address [address] [place], [place] [id number] Care Team Providers Care Toy Assembly Supervisor Name Role Phone Ruby Shepherd PCP Unavailable Allergies and Adverse Reactions Name Reaction Notes NO KNOWN DRUG ALLERGIES Plan of Treatment Not available. Medications Name Start Date Expiration Date SIG Comments [...] HC BMI BSA BMI Percentile O2 Sat(%) 04/08/2015 3:39:00 PM 103 mmHg 68 mmHg [...] Value 0.0352 ug/mLAFP MoM 1.20 hCG Value 93608.0 mIU/ mLhCG MoM 0.96 uE3 Value 1.150 [...] 1:36PM Contraceptive education Apr 14 2015 9:00AM Payers Insurance Name Company Name Plan Name Plan Number Policy Number Policy Group Number Start Date [employer] [place] [employer] [place] [id number] N/A [employer] [place] [employer] [place] State Plan [id number] N/A [place] Medical [place] Program [place] Pro [id number] November History of Encounters Visit Date Visit Type Provider 04/08/[address] Ruby Shepherd MD 02/25/[address] [facility] [address] Ruby Shepherd MD 02/17/2015 Office [...] 08/01/2014 Office visit Frankie Dumont MD 05/03/2014 [facility] Frankie Dumont MD 03/18/2014 Office visit Andie Tuttle COAL DRIER OPERATOR 11/12/2013 Office visit Andie Tuttle COAL DRIER OPERATOR 07/13/2013 [facility] Sukhi Polanco MD 07/03/2013 Office visit Sukhi Polanco MD 05/02/2013 Hospital Frankie Dumont MD 04/30/2013 Office visit Frankie Dumont MD 04/29/2013 Hospital Frankie Dumont MD 04/12/2013 Office visit Frankie Dumont MD 04/04/2013 Office visit Frankie Dumont MD 03/28/2013 Office visit Frankie Dumont MD 03/14/2013 Office visit Frankie Dumont MD 02/28/2013 Office visit Andie Tuttle COAL DRIER OPERATOR 02/14/2013 Office visit Frankie Dumont MD 01/29/2013 [...] 01/19/2012 Office visit Frankie Dumont MD 01/12/2012 [facility] Frankie Dumont MD 01/11/2012 Office visit Frankie Dumont MD 12/30/2011 Office visit Frankie Dumont MD 12/16/2011 Office visit Frankie Dumont MD
--- OUTSIDE RECORDS SUMMARY | 2017-11-19 17:49 | XMS REPORT ---
Author Author Andie Tuttle [facility] Address [address] [place], [place] [id number] Care Team Providers Care Furnace And Wash Equipment Operator Name Role Phone Andie Tuttle PCP Unavailable [...] by intrauterine route daily for 1 day hydrocodone-acetaminophen 5-325 mg oral tablet 08/08/2015 08/15/2015 take 1 tablet by oral route every 6 hours as needed for pain for 7 days Discontinued Name Start Date Discontinued Date [...] Rheumatoid arthritis Active , Threatened Active 10/12/2012 Condyloma acuminata Active 09/14/2016 Vital Signs Date Time BP-Sys(mm[Hg] BP-Germaine(mm[Hg]) HR(bpm) RR(rpm) Temp WT HT HC BMI BSA BMI Percentile O2 Sat(%) 09/09/2016 2:55:00 PM 124 mmHg 84 mmHg 84 bpm 98.2 F 207 lbs 62 in 37.86 kg/m2 2.03 m2 08/08/2015 6:26:00 PM 124 mmHg 80 mmHg 76 bpm 18 rpm 97.3 F 213.25 lbs 62 in 39.0035 kg/m 2.057 m 99 % 04/14/2015 4:50:00 PM 123 mmHg [...] 02/17/2015 12:00 AM CULTURE OTHR SPECIMN AEROBIC Reviewed 04/14/2015 5:04 PM URINE TEST Reviewed 04/14/2015 12:00 AM INSERT INTRAUTERINE DEVICE Reviewed 04/14/2015 12:00 AM Paraguard T380A -INTRAUTERINE COPPER CONTRACEPTIVE Reviewed 12/16/2011 12:00 AM CYTOPATH C/V THIN LAYER Reviewed 12/16/2011 12:00 AM SPECIMEN HANDLING OFFICE-LAB Reviewed 12/16/2011 12:00 AM N.GONORRHOEAE DNA AMP PROB Reviewed 12/16/2011 12:00 AM CHLAMYDIA CULTURE Reviewed 12/16/2011 12:00 AM OBSTETRIC PANEL Reviewed 12/16/2011 12:00 AM HIV-1ANTIBODY Reviewed 12/16/2011 12:00 AM URINALYSIS AUTO W/SCOPE Reviewed 12/16/2011 12:00 AM OB US < 14 WKS SINGLE FETUS Reviewed 12/16/2011 12:00 AM GLYCOSYLATED HEMOGLOBIN TEST Reviewed 01/11/2012 12:00 AM COMPLETE CBC W/AUTO DIFF WBC Reviewed 01/11/2012 12:00 AM Type and screen Reviewed 09/28/2012 12:00 AM URINE TEST Reviewed 09/28/2012 12:00 AM CYTOPATH C/V THIN LAYER Reviewed 09/28/2012 12:00 AM SPECIMEN HANDLING OFFICE-LAB Reviewed 09/28/2012 12:00 AM N.GONORRHOEAE DNA AMP PROB Reviewed 09/28/2012 12:00 AM CHLAMYDIA CULTURE Reviewed 09/28/2012 12:00 AM OBSTETRIC PANEL Reviewed 09/28/2012 12:00 AM HIV-1ANTIBODY Reviewed 09/28/2012 12:00 AM URINALYSIS AUTO W/SCOPE Reviewed 09/28/2012 12:00 AM OB US < 14 WKS SINGLE FETUS Reviewed 09/28/2012 12:00 AM GLYCOSYLATED HEMOGLOBIN TEST Reviewed 09/28/2012 12:00 AM SMEAR WET MOUNT SALINE/INK Reviewed 10/12/2012 12:00 AM TRANSVAGINAL US OBSTETRIC Reviewed 10/23/2012 12:00 AM TRANSVAGINAL US OBSTETRIC Reviewed 12/06/2012 12:00 AM ALPHA-FETOPROTEIN SERUM Reviewed 01/03/2013 12:00 AM OB US >/=14 WKS SNGL FETUS Reviewed 02/28/2013 12:00 AM GLUCOSE TEST Reviewed 02/28/2013 12:00 AM COMPLETE CBC W/AUTO DIFF WBC Reviewed 02/28/2013 12:00 AM Type and screen Reviewed 02/28/2013 12:00 AM GLUCOSE TOLERANCE TEST (GTT) Reviewed 04/02/2013 12:00 AM OB US >/=14 WKS SNGL FETUS Reviewed 04/24/2013 12:00 AM OB US >/=14 WKS SNGL FETUS Reviewed 11/12/2013 12:00 AM CYTOPATH C/V MANUAL Reviewed 11/12/2013 12:00 AM SPECIMEN HANDLING OFFICE-LAB Reviewed 11/12/2013 12:00 AM CHLAMYDIA CULTURE Reviewed 11/12/2013 12:00 AM N.GONORRHOEAE DNA AMP PROB Reviewed 11/12/2013 12:00 AM ASSAY THYROID STIM HORMONE Reviewed 11/12/2013 12:00 AM URINALYSIS AUTO W/SCOPE Reviewed 11/12/2013 12:00 AM ASSAY OF GONADOTROPIN (FSH) Reviewed 11/12/2013 12:00 AM ASSAY OF PROLACTIN Reviewed 11/12/2013 12:00 AM ASSAY OF FREE TESTOSTERONE Reviewed 11/12/2013 12:00 AM ASSAY OF SEX HORMONE GLOBUL Reviewed 03/26/2014 12:00 AM Breast ultrasound Reviewed 03/18/2014 12:00 AM Breast ultrasound Reviewed 08/01/2014 3:31 PM URINE TEST Reviewed 08/01/2014 12:00 AM N.GONORRHOEAE DNA AMP PROB Reviewed 08/01/2014 12:00 AM CHLAMYDIA CULTURE Reviewed 08/01/2014 12:00 AM HIV-1ANTIBODY Reviewed 08/01/2014 12:00 AM CYTOPATH C/V THIN LAYER Reviewed 08/01/2014 12:00 AM URINALYSIS AUTO W/SCOPE Reviewed 08/01/2014 12:00 AM OBSTETRIC PANEL Reviewed 08/01/2014 12:00 AM US PREG UTERUS REAL TIME W/IMAGE DCMTN TRANSVAG Reviewed 08/01/2014 12:00 AM SPECIMEN HANDLING OFFICE-LAB Reviewed 10/03/2014 12:00 AM ALPHA-FETOPROTEIN SERUM Reviewed 10/31/2014 12:00 AM OB US >/=14 WKS SNGL FETUS Reviewed 12/25/2014 12:00 AM GLUCOSE TEST Reviewed 12/25/2014 12:00 AM COMPLETE CBC W/AUTO DIFF WBC Reviewed 12/25/2014 12:00 AM Type and screen Reviewed 02/07/2015 12:00 AM OB US FOLLOW-UP PER FETUS Reviewed Results Summary Data and Description Results 12/16/2011 12:50 PM WBC 9.2 RBC 4.78 HGB 14.80 g/dLHCT 42.30 %MCV 89.0 fLMCH 31.0 pgMCHC 35.0 g/dLRDW SD 42 RDW CV 12.90 %MPV 10.70 fLPLT 257 NRBC# 0.00 NRBC % 0.0 %NEUT 68.70 %%LYMP 24.70 %%MONO 5.10 %%EOS 1.30 %%BASO 0.20 %#NEUT 6.28 # LYMP 2.26 #MONO 0.47 #EOS 0.12 #BASO 0.02 MANUAL DIFF NOT IND COLOR YELLOW APPEARANCE CLEAR SPEC GRAV 1.020 pH 7.0 PROTEIN NEGATIVE GLUCOSE NEGATIVE KETONE NEGATIVE BILIRUBIN NEGATIVE BLOOD NEGATIVE NITRITE NEGATIVE LEUK SCREEN NEGATIVE WBC/HPF RARE RBC/HPF RARE CASTS/LPF NEGATIVE CRYSTALS TRACE CA OX MUCOUS THRDS FEW BACTERIA FEW EPITH CELLS FEW SQUAMOUS TRICHOMONAS NEGATIVE YEAST NEGATIVE CULT ORDERED YES HIV AG/AB COMBO 0.09 GLYCOHEMOGLOBIN A1C 5.0 % ABO/Rh Type A Positive Antibody Screen-Gel Negative RUBELLA 15.0 IU/mL 01/11/2012 10:40 AM WBC 9.0 RBC 4.82 HGB 14.80 g/dLHCT 42.60 %MCV 88.0 fLMCH 30.70 pgMCHC 34.70 g/dLRDW SD 41 RDW CV 12.70 %MPV 10.60 fLPLT 287 NRBC# 0.00 NRBC% 0.0 ABO/Rh Type A Positive Antibody Screen-Gel Negative 10/02/2012 5:20 PM COLOR YELLOW APPEARANCE CLEAR SPEC GRAV 1.025 pH 6.0 PROTEIN NEGATIVE GLUCOSE NEGATIVE KETONE NEGATIVE BILIRUBIN NEGATIVE BLOOD NEGATIVE NITRITE NEGATIVE LEUK SCREEN NEGATIVE WBC/HPF RARE RBC/HPF NEGATIVE CASTS/LPF NEGATIVE CRYSTALS NEGATIVE MUCOUS THRDS NEGATIVE BACTERIA NEGATIVE EPITH CELLS NEGATIVE TRICHOMONAS NEGATIVE YEAST NEGATIVE CULT ORDERED YES WBC 11.9 RBC 4.60 HGB 13.70 g/dLHCT 40.0 %MCV 87.0 fLMCH 29.80 pgMCHC 34.30 g/dLRDW SD 41 RDW CV 12.80 %MPV 10.50 fLPLT 250 NRBC# 0.00 NRBC% 0.0 %NEUT 73.80 %%LYMP 20.20 %%MONO 4.50 %%EOS 1.30 %%BASO 0.20 %#NEUT 8.79 #LYMP 2.40 #MONO 0.53 #EOS 0.15 #BASO 0.02 MANUAL DIFF NOT IND ABO/Rh Type A Positive Antibody Screen-Gel Negative GLYCOHEMOGLOBIN A1C 5.60 %HIV AG/AB COMBO 0.25 02/28/2013 9:55 AM WBC 8.1 RBC 4.02 HGB 11.70 g/dLHCT 34.30 %MCV 85.0 fLMCH 29.10 pgMCHC 34.10 g/dLRDW SD 42 RDW CV 13.50 %MPV 9.70 fLPLT 284 NRBC# 0.00 NRBC% 0.0 %NEUT 73.80 %%LYMP 20.30 %%MONO 4.0 %%EOS 1.70 %%BASO 0.20 %#NEUT 5.96 #LYMP 1.64 #MONO 0.32 #EOS 0.14 #BASO 0.02 MANUAL DIFF NOT IND ABO/Rh Type A Positive Antibody Screen-Gel Negative 04/29/2013 8:50 AM WBC 12.5 PLT 271 NRBC# 0.00 NRBC% 0.0 %NEUT 89.80 %%LYMP 6.10 %%MONO 3.70 %%EOS 0.30 %%BASO 0.10 %#NEUT 11.24 #LYMP 0.76 #MONO 0.46 #EOS 0.04 #BASO 0.01 MANUAL DIFF SEE BELOW SEGS 74 BANDS 14 LYMPHS 9 MONOS 1 EOS 1.0 %METAS 1 RBC 4.19 HGB 11.20 g/dLHCT 34.20 %MCV 82.0 fLMCH 26.70 pgMCHC 32.70 g/ dLRDW SD 41 RDW CV 13.90 %MPV 10.0 fLCOLOR YELLOW APPEARANCE CLEAR SPEC GRAV 1.025 pH 5.5 PROTEIN TRACE GLUCOSE NEGATIVE KETONE NEGATIVE BILIRUBIN NEGATIVE BLOOD NEGATIVE NITRITE NEGATIVE LEUK SCREEN NEGATIVE WBC/HPF RARE RBC/HPF NEGATIVE CASTS/LPF NEGATIVE CRYSTALS TRACE AMORPH MUCOUS THRDS FEW BACTERIA FEW EPITH CELLS 1+ SQUAMOUS TRICHOMONAS NEGATIVE YEAST NEGATIVE CULT SET UP? NO GLUCOSE 92.0 mg/dLSODIUM 138.0 mmol/LPOTASSIUM 3.80 mmol/LCHLORIDE 107.0 mmol/ LCO2 20.0 mmol/LBUN 9.0 mg/dLCREATININE 0.60 mg/dLSGOT/AST 13.0 IU/LSGPT/ALT 13.0 IU/LALK PHOS 122.0 IU/LTOTAL PROTEIN 6.60 g/dLALBUMIN 3.0 g/dLTOTAL BILI 0.40 mg/dLCALCIUM 9.20 mg/dLAGE 23 GFR NonAA 122 GFR AA 148 eGFR >60 mL/min/ 1.73 m2eGFR AA* >60 05/02/2013 10:15 PM WBC 7.3 RBC 4.08 HGB 10.80 g/dLHCT 33.20 %MCV 81.0 fLMCH 26.50 pgMCHC 32.50 g/dLRDW SD 41 RDW CV 13.90 %MPV 10.30 fLPLT 249 NRBC# 0.00 NRBC% 0.0 %NEUT 75.50 %%LYMP 18.70 %%MONO 5.0 %%EOS 0.70 %%BASO 0.10 %#NEUT 5.54 #LYMP 1.37 #MONO 0.37 #EOS 0.05 #BASO 0.01 SEGS 80 BANDS 2 LYMPHS 17 MONOS 1 ABO/Rh Type A Positive Antibody Screen-Gel Negative 05/04/2013 7:20 AM WBC 12.2 RBC 3.89 HGB 10.30 g/dLHCT 31.80 %MCV 82.0 fLMCH 26.50 pgMCHC 32.40 g/dLRDW SD 42 RDW CV 14.0 %MPV 9.80 fLPLT 220 NRBC# 0.02 NRBC % 0.1 07/13/2013 8:40 AM TEST UR NEGATIVE 11/12/2013 1:19 PM COLOR YELLOW APPEARANCE CLEAR SPEC GRAV >=1.030 pH 5.5 PROTEIN NEGATIVE GLUCOSE NEGATIVE KETONE NEGATIVE BILIRUBIN NEGATIVE BLOOD NEGATIVE NITRITE NEGATIVE LEUK SCREEN NEGATIVE WBC/HPF RARE RBC/HPF NEGATIVE CASTS/LPF NEGATIVE CRYSTALS TRACE AMORPH MUCOUS THRDS NEGATIVE BACTERIA FEW EPITH CELLS FEW SQUAMOUS TRICHOMONAS NEGATIVE YEAST NEGATIVE CULT ORDERED YES 11/16/2013 8:45 AM FSH 0.90 mIU/mLFree Testosterone(Direct) 0.60 pg/mLTSH 0.40 uIU/mLProlactin 17.90 ng/mLSOURCE: URINE Chlamydia trachomatis,LUPIS Negative Neisseria gonorrhoeae,LUPIS Negative Sex Horm Binding Glob,Serum 27.4 COLOR YELLOW APPEARANCE CLEAR SPEC GRAV >=1.030 pH 5.5 PROTEIN NEGATIVE GLUCOSE NEGATIVE KETONE NEGATIVE BILIRUBIN NEGATIVE BLOOD NEGATIVE NITRITE NEGATIVE LEUK SCREEN NEGATIVE WBC/HPF RARE RBC/HPF NEGATIVE CASTS/LPF NEGATIVE CRYSTALS NEGATIVE MUCOUS THRDS FEW BACTERIA NEGATIVE EPITH CELLS FEW SQUAMOUS TRICHOMONAS NEGATIVE YEAST NEGATIVE CULT ORDERED YES 08/01/2014 3:31 PM HCG Ur Ql positive 08/01/2014 4:30 PM WBC 11.1 RBC 4.73 HGB 13.90 g/dLHCT 41.60 %MCV 88.0 fLMCH 29.40 pgMCHC 33.40 g/dLRDW SD 41 RDW CV 12.90 %MPV 10.30 fLPLT 268 NRBC# 0.00 NRBC% 0.0 %NEUT 76.30 %%LYMP 18.80 %%MONO 3.70 %%EOS 1.10 %%BASO 0.10 %#NEUT 8.46 #LYMP 2.09 #MONO 0.41 #EOS 0.12 #BASO 0.01 MANUAL DIFF NOT IND COLOR YELLOW APPEARANCE CLOUDY SPEC GRAV 1.020 pH 7.5 PROTEIN NEGATIVE GLUCOSE NEGATIVE KETONE NEGATIVE BILIRUBIN NEGATIVE BLOOD NEGATIVE NITRITE NEGATIVE LEUK SCREEN NEGATIVE WBC/HPF NEGATIVE RBC/HPF NEGATIVE CASTS/LPF NEGATIVE CRYSTALS 3+++AMORPHOUS MUCOUS THRDS NEGATIVE BACTERIA NEGATIVE EPITH CELLS FEW SQUAMOUS TRICHOMONAS NEGATIVE YEAST NEGATIVE CULT ORDERED YES RPR Non Reactive HIV AG/AB COMBO 0.08 HBsAg Screen Negative Rubella Antibodies, IgG 1.08 Index 10/03/2014 3:45 PM Results Report Test Results: *Screen Negative* Gest. Age on CollectionDate 16.1 Gestat. Age Based On Ultrasound M[age] Age At JARRETT 25.0 Race Weight 193 Insulin Dep Diabetes No Multiple Gestation No AFP Value 0.0352 ug/mLAFP MoM 1.20 hCG Value 00820.0 mIU/mLhCG MoM 0.96 uE3 Value 1.150 ng/mLuE3 MoM 1.44 GERMAINE Value 209.620 pg/mLDIA MoM 1.30 OSBR Risk 1 IN 6499 DSR (Second Trimester) 1IN 6292 DSR (By Age) 1 IN 924 T18 Risk Not increased T18 (By Age) 1:3600 12/25/2014 2:50 PM WBC 8.9 RBC 4.11 HGB 12.10 g/dLHCT 36.60 %MCV 89.0 fLMCH 29.40 pgMCHC 33.10 g/dLRDW SD 43 RDW CV 13.30 %MPV 9.90 fLPLT 274 NRBC# 0.00 NRBC% 0.0 %NEUT 78.50 %%LYMP 16.90 %%MONO 3.60 %%EOS 0.90 %%BASO 0.10 %#NEUT 7.00 #LYMP 1.51 #MONO 0.32 #EOS 0.08 #BASO 0.01 MANUAL DIFF NOT IND 04/14/2015 5:04 PM Test, Urine Negative History Of Immunizations Not available. History of Past Illness Name Date of Onset Comments Rheumatoid arthritis Diagnosed age 19 , Threatened 10/12/2012 Condyloma acuminata 09/14/2016 test confirmed positive Dec 16 2011 11:25AM [...] 4:55PM Tooth pain Aug 08 2015 6:31PM Condyloma acuminata Sep 09 2016 3:01PM Payers Insurance Name Company Name Plan Name Plan Number Policy Number Policy Group Number Start Date [employer] [place] [employer] [place] [id number] N/[place] [employer] [place] [employer] [place] [id number] N/A [place] [employer] [place] [employer] [place] Pro[place] [id number] November History of Encounters Visit Date Visit Type Provider 09/09/2016 Office visit Andie Tuttle TRANSPORT RN 01/05/2016 Hospital Leslie Macario MD 08/08/2015 Office visit Gely Malhotradez TRANSPORT RN 04/14/2015 Office visit Andie Tuttle TRANSPORT RN 04/08/[address] Ruby Shepherd MD 02/25/[address] [facility] [address] Ruby Shepherd MD 02/17/2015 [...] Dumont MD 03/18/2014 Office visit Andie Tuttle TRANSPORT RN 11/12/2013 Office visit Andie Tuttle TRANSPORT RN 07/13/2013 Hospital Sukhi Polanco MD 07/03/2013 Office visit Sukhi Polanco MD 05/02/2013 Hospital Frankie Dumont MD 04/30/2013 Office visit Frankie Dumont MD 04/29/2013 [facility] Frankie Dumont MD 04/12/2013 Office visit Frankie Dumont MD 04/04/2013 Office visit Frankie Dumont MD 03/28/2013 Office visit Frankie Dumont MD 03/14/2013 Office visit Frankie Dumont MD 02/28/2013 Office visit Andie Tuttle TRANSPORT RN 02/14/2013 Office visit Frankie Dumont MD 01/29/2013 [...] 01/19/2012 Office visit Frankie Dumont MD 01/12/2012 [facility] Frankie Dumont MD 01/11/2012 Office visit Frankie Dumont MD 12/30/2011 Office visit Frankie Dumont MD 12/16/2011 Office visit Frankie Dumont MD
--- OUTSIDE RECORDS SUMMARY | 2017-11-19 17:51 | XMS REPORT ---
Author Author Andie Tuttle [facility] Address [address] [place], [place] [id number] Care Team Providers Care Desk Manager Name Role Phone Andie Tuttle PCP [...] Value 0.0352 ug/mLAFP MoM 1.20 hCG Value 21032.0 mIU/mLhCG MoM 0.96 uE3 Value 1.150 ng/mLuE3 [...] Plan [employer] [place] [id number] [place] [employer] [place] [employer] [place] [id number] N/A [place] [employer] [place] [employer] [place] [id number] November History of Encounters Visit Date Visit Type Provider 09/09/2016 Office visit Andie Tuttle ASSOCIATE LOAN OFFICER 01/05/2016 Hospital Leslie Macario MD 08/08/2015 Office visit Gely Malhotradez ASSOCIATE LOAN OFFICER 04/14/2015 Office visit Andie Tuttle ASSOCIATE LOAN OFFICER 04/08/[address] Ruby Shepherd MD 02/25/[address] [facility] [address] Ruby Shepherd MD 02/17/2015 [...] Dumont MD 03/18/2014 Office visit Andie Tuttle ASSOCIATE LOAN OFFICER 11/12/2013 Office visit Andie Tuttle ASSOCIATE LOAN OFFICER 07/13/2013 Hospital Sukhi Polanco MD 07/03/2013 Office visit Sukhi Polanco MD 05/02/2013 Hospital Frankie Dumont MD 04/30/2013 Office visit Frankie Dumont MD 04/29/2013 [facility] Frankie Dumont MD 04/12/2013 Office visit Frankie Dumont MD 04/04/2013 Office visit Frankie Dumont MD 03/28/2013 Office visit Frankie Dumont MD 03/14/2013 Office visit Frankie Dumont MD 02/28/2013 Office visit Andie Tuttle ASSOCIATE LOAN OFFICER 02/14/2013 Office visit Frankie Dumont MD 01/29/2013 [...] 01/19/2012 Office visit Frankie Dumont MD 01/12/2012 [facility] Frankie Dumont MD 01/11/2012 Office visit Frankie Dumont MD 12/30/2011 Office visit Frankie Dumont MD 12/16/2011 Office visit Frankie Dumont MD
--- OUTSIDE RECORDS SUMMARY | 2017-11-19 17:52 | XMS REPORT ---
Author Author Renee Markham [facility] Address [address] [place], [place] [id number] Care Team Providers Care Pattern Generator Operator Name Role Phone Renee Markham PCP [...] Value 0.0352 ug/mLAFP MoM 1.20 hCG Value 25191.0 mIU/ mLhCG MoM 0.96 uE3 Value 1.150 [...] Plan [employer] [place] [id number] [place] [employer] [place] [employer] [place] [id number] N/A [place] Medical [place] [facility] Medical Assistance Pro [id number] November History of Encounters Visit Date Visit Type Provider 01/20/2015 Office visit Renee Markham MD 01/08/2015 Office visit Frankie Dumont MD 12/25/2014 Office visit Frankie Dumont MD 12/04/2014 Office visit Frankie Dumont MD 11/06/2014 Office visit Frankie Dumont MD 10/03/2014 Office visit Frankie Dumont MD 09/05/2014 Office visit Frankie Dumont MD 08/01/2014 Office visit Frankie Dumont MD 05/03/2014 [facility] Frankie Dumont MD 03/18/2014 Office visit Andie Tuttle SKI TECHNICIAN 11/12/2013 Office visit Andie Tuttle SKI TECHNICIAN 07/13/2013 [facility] Sukhi Polanco MD 07/03/2013 Office visit Sukhi Polanco MD 05/02/2013 [facility] Frankie Dumont MD 04/30/2013 Office visit Frankie Dumont MD 04/29/2013 [facility] Frankie Dumont MD 04/12/2013 Office visit Frankie Dumont MD 04/04/2013 Office visit Frankie Dumont MD 03/28/2013 Office visit Frankie Dumont MD 03/14/2013 Office visit Frankie Dumont MD 02/28/2013 Office visit Andie Tuttle SKI TECHNICIAN 02/14/2013 Office visit Frankie Dumont MD 01/29/2013 [...] 01/19/2012 Office visit Frankie Dumont MD 01/12/2012 [facility] Frankie Dumont MD 01/11/2012 Office visit Frankie Dumont MD 12/30/2011 Office visit Frankie Dumont MD 12/16/2011 Office visit Frankie Dumont MD
--- OUTSIDE RECORDS SUMMARY | 2017-11-19 17:53 | XMS REPORT ---
Author Author [facility] Organization [facility] Address [address] [place], [place] [id number] Care Team Providers Care Salon Stylist Name Role Phone PCP Unavailable Allergies and [...] test confirmed positive Aug 01 2014 3:31PM Payers Insurance Name Company Name Plan Name Plan Number Policy Number Policy Group Number Start Date [employer] [place] [employer] [place] [id number] [place] [employer] [place] [employer] [place] [id number] N/A [place] Medical Assistance [facility] Medical Assistance Pro [id number] November History of Encounters Visit Date Visit Type Provider 10/03/2014 Office visit Frankie Dumont MD 09/05/2014 Office visit Frankie Dumont MD 08/01/2014 Office visit Frankie Dumont MD 05/03/2014 [facility] Frankie Dumont MD 03/18/2014 Office visit Andie Tuttle VOCAL TEACHER 11/12/2013 Office visit Andie Tuttle VOCAL TEACHER 07/13/2013 [facility] Sukhi Polanco MD 07/03/2013 Office visit Sukhi Polanco MD 05/02/2013 [facility] Frankie Dumont MD 04/30/2013 Office visit Frankie Dumont MD 04/29/2013 [facility] Frankie Dumont MD 04/12/2013 Office visit Frankie Dumont MD 04/04/2013 Office visit Frankie Dumont MD 03/28/2013 Office visit Frankie Dumont MD 03/14/2013 Office visit Frankie Dumont MD 02/28/2013 Office visit Andie Tuttle VOCAL TEACHER 02/14/2013 Office visit Frankie Dumont MD 01/29/2013 Office visit Frankie Dumont MD 01/04/2013 Office visit Frankie Dumont MD 12/06/2012 Office visit Farnkie Dumont MD 11/22/2012 Office visit Frankie Dumont MD 11/09/2012 Office visit Frankie Dumont MD 11/01/2012 Office visit Frankie Dumont MD 10/25/2012 Office visit Frankie Dumont MD 10/20/2012 Office visit Frankie Dumont MD 10/12/2012 Office visit Frankie Dumont MD 10/05/2012 Office visit Prachi Canada MD 09/28/2012 Office visit Frankie Dumont MD 01/19/2012 Office visit Frankie Dumont MD 01/12/2012 [facility] Frankie Dumotn MD 01/11/2012 Office visit Frankie Dumont MD 12/30/2011 Office visit Frankie Dumont MD 12/16/2011 Office visit Frankie Dumont MD
[2017-11-19] MEDS ORDERED: TRIM/SULFAMETH 160/800 (SEPTRA DS) TAB PO ONE (18:00)
[2017-11-19 18:11] LABS: BILIRUBIN,URINE NEGATIVE (NEGATIVE); CLARITY,URINE VERY CLOUDY; COLOR,URINE YELLOW; GLUCOSE, URINE (UA) NEGATIVE (NEGATIVE); KETONES,URINE NEGATIVE (NEGATIVE); LEUKOCYTE ESTERASE ,URINE 1+ (NEGATIVE); NITRITE,URINE NEGATIVE (NEGATIVE); PH,URINE 7 (5-9); PROTEIN,URINE NEGATIVE (NEGATIVE); UROBILINOGEN,URINE NORMAL (NORMAL)
[2017-11-19 18:20] LABS: AMORPHOUS SEDIMENT,UR MOD AMOR URATES /LPF; BACTERIA,URINE NEGATIVE /HPF; WBC,URINE 0-2 /HPF
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
[2017-11-19 18:42] LABS: BASOPHILS % (AUTO) 0 % (0-10); EOSINOPHILS # (AUTO) 0.2 10^3/uL (0.0-0.3); EOSINOPHILS % (AUTO) 2 % (0-10); HEMATOCRIT 41 % (35-52); HEMOGLOBIN 14.3 G/DL (11.5-16.0); LYMPHOCYTES # (AUTO) 1.6 X 10^3 (1.0-4.0); LYMPHOCYTES % (AUTO) 15 % (12-44); MEAN CORPUSCULAR HEMOGLOBIN 30 PG (25-34); MEAN CORPUSCULAR HGB CONC 35 G/DL (32-36); MEAN CORPUSCULAR VOLUME 87 FL (80-99); MEAN PLATELET VOLUME 10.1 FL (7.4-10.4); MONOCYTES # (AUTO) 0.5 X 10^3 (0.0-1.0); MONOCYTES % (AUTO) 5 % (0-12); NEUTROPHILS # (AUTO) 8.3 X 10^3 (1.8-7.8); NEUTROPHILS % (AUTO) 78 % (42-75); PLATELET COUNT 289 10^3/uL (130-400); RED BLOOD COUNT 4.74 10^6/uL (4.35-5.85); WHITE BLOOD COUNT 10.5 10^3/uL (4.3-11.0)
[2017-11-19 19:04] LABS: ALANINE AMINOTRANSFERASE 47 U/L (0-55); ALKALINE PHOSPHATASE 123 U/L (40-136); BILIRUBIN,TOTAL 0.3 MG/DL (0.1-1.0); BUN/CREATININE RATIO 13; CALCIUM 9.3 MG/DL (8.5-10.1); CARBON DIOXIDE 19 MMOL/L (21-32); CHLORIDE 110 MMOL/L (98-107); CREATININE SERUM 0.75 MG/DL (0.60-1.30); GFR ESTIMATED > 60; GLUCOSE 140 MG/DL (70-105); POTASSIUM 3.8 MMOL/L (3.6-5.0); SODIUM 141 MMOL/L (135-145); TOTAL PROTEIN 7.1 GM/DL (6.4-8.2)
[2017-11-19] MEDS ORDERED: SULF1TAB35 PO (19:12)
[2017-11-19 19:20] VITALS: BP 110/68
== END 2017-11-19 19:25 | disposition home or self-care (01) ==
LOC: ER 17:37
DX: N76.4 Abscess of vulva (principal); F41.9 Anxiety disorder, unspecified; F32.9 Major depressive disorder, single episode, unspecified; G43.909 Migraine, unspecified, not intractable, without status migrainosus; F17.210 Nicotine dependence, cigarettes, uncomplicated; F12.90 Cannabis use, unspecified, uncomplicated; Z98.890 Other specified postprocedural states
CPT/HCPCS: 36415; 80053; 81000; 84703; 85025; 87070; 87077; 87186; 87205; 99283